=== PATIENT | male | born 1990 | race Caucasian/White ===

== ENCOUNTER 2020-09-19 17:57 | Emergency (ER) | payer SELFPAY ==
[~2020-09-19] VITALS: Ht 180.3 cm; Wt 74.8 kg
--- NOTE | 2020-09-19 18:06 | NUR ---
TO ER BED 4, C/O CALF PAIN AND TIGHTNESS UPON WAKING UP IN [facility] [place].
--- NOTE | 2020-09-19 18:20 | NUR ---
ULTRA SOUND AT BEDSIDE
[2020-09-19 18:35] VITALS: BP 124/76
== END 2020-09-19 19:17 | disposition home or self-care (01) ==
LOC: ER 18:04
DX: M79.662 Pain in left lower leg (principal)
CPT/HCPCS: 93971-TC